=== PATIENT | male | born 1970 ===

== ENCOUNTER 2024-09-04 16:04 | Inpatient (IN) | payer OTHER, SELFPAY ==
--- OUTSIDE RECORDS SUMMARY | 2024-09-04 16:16 | XMS_ITS | Encounter Summary ---
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 Buprenorphine screen, urine (09/03/2024 4:32 PM EDT) Buprenorphine Screen Urine Negative Negative LAB CHEMISTRY METHOD 09/03/2024 5:[address] [facility] Urine Urine specimen obtained by clean catch procedure / Unknown Non-blood Collection / Unknown 09/03/2024 4:32 PM EDT 09/03/2024 4:[address] [facility] - 09/03/2024 5:32 PM EDT Assay cutoff 5 ng/mL Semi-quantitative assay for screening purposes only. Unconfirmed screening result should not be used for non-medical purposes. *ALTERNATE METHOD CONFIRMATION DONE UPON REQUEST ONLY* [facility]LES Fin al Result Performing Organization Address [facility]/ZIP Co de Phone Number [facility] [address] [place] [address], [place] [phone] * (ABNORMAL) Drug abuse screen 8a panel, urine (09/03/2024 4:32 PM EDT) Amphetamine Screen, Ur Negative Negative LAB CHEMISTRY METHOD 6:[address] [facility] Comment:Certain OTC medicati ons containing ephedrine, phenylephrine, pseudoephedrine and phenylpropanolamine can cause false positive results. Barbiturate Screen, Ur Negative Negative LAB [facility] Benzodiazepine Screen, Ur Negative Negative LAB CHEMISTRY METHOD 5 6:09 PM [facility] Cocaine Screen, Ur Positive(A ) Negative LAB CHEMISTRY METHOD 5 6:09 PM [facility] Opiate Screen, Ur Negative Negative LAB CHEMISTRY METHOD 5 6:09 PM [facility] Cannabinoid (THC) Screen, Ur Negative Negative LAB CHEMISTRY METHOD 5 6:09 PM [facility] Comment:Specimens from patie nts taking pantoprazole sodium (Protonix) have been shown to produce false positive results. Oxycodone Screen, Ur Negative Negative LAB CHEMISTRY METHOD 5 6:09 PM [facility] Fentanyl, Ur Positive(A ) Negative LAB CHEMISTRY METHOD 5 6:09 PM [facility] Urine Urine specimen obtained by clean catch procedure / Unknown Non-blood Collection / Unknown 09/03/2024 4:32 PM EDT 09/03/2024 4:59 PM EDT [facility] - 09/03/2024 6:09 PM EDT Assay cutoffs: Amphetamines ? 1000 ng/mL Barbiturates ?200 ng/mL Benzodiazepines ?? 200 ng/mL Cocaine ? 300 ng/mL Fentanyl ?1 ng/mL Opiates ? 300 ng/mL Oxycodone ? 100 ng/mL THC ?50 ng/mL Semi-quantitative assay for screening purposes only. Unconfirmed screening result should not be used for non-medical purposes. *ALTERNATE METHOD CONFIRMATION DONE UPON REQUEST ONLY* Ana LAZO LAB URINE ORDERABLES [facility] al Result EMELI [place] ([facility]) [facility] [address] [place] [address], documented in this encounter Visit Diagnoses Diagnosis Suicidal ideation- Primary documented in this encounter Administered Medications Active Administered Medications - up to 3 most recent administrations Medication Order MAR Action Action Date Dose Rate Site methadone (DOLOPHINE) tablet 10 mg 10 mg, oral, Daily, First dose on Sun09/04/24 at 1145, TOTAL DOSE = 95 MG Given 09/04/2024 11:38 AM EDT 10 mg methadone (DOLOPHINE) tablet 5 mg 5 mg, oral, Daily, First dose on Sun09/04/24 at 1145, TOTAL DOSE = 95 MG Given 09/04/2024 11:39 AM EDT 5 mg methadone (METHADOSE) dispersible tablet 80 mg 80 mg, oral, Daily, First dose on Sun09/04/24 at 1145, TOTAL DOSE = 95 MG Disperse total dose in ~120 mL of water, orange juice, or other acidic fruit beverage prior to administration; if insoluble excipients remain and do not entirely dissolve, add a small amount of liquid to cup and administer remaining mixture. Do not chew or swallow tablet before dispersing in liquid. Given 09/04/2024 11:38 AM EDT 80 mg Inactive Administered Medications - up to 3 most recent administrations Medication Order MAR Action Action Date Dose Rate Site LORazepam (ATIVAN) tablet 1 mg 1 mg, oral, Once, On Sun09/03/24 at 1924, For 1 dose Given 09/03/2024 8:23 PM EDT 1 mg potassium chloride (KLOR-CON M20) CR tablet 20 mEq 20 mEq, oral, Once, On Sun09/04/24 at 1323, For 1 dose, Tablet may be swallowed whole (do not crush/chew/suck on) OR broken in half and each half swallowed separately OR dissolved (whole tablet) in ~4 ounces of water (allow ~2 minutes to dissolve, stir well and administer immediately). Given 09/04/2024 2:36 PM EDT 20 mEq potassium chloride (KLOR-CON M20) CR tablet 40 mEq 40 mEq, oral, Once, On Sun09/04/24 at 1123, For 1 dose, Tablet may be swallowed whole (do not crush/chew/suck on) OR broken in half and each half swallowed separately OR dissolved (whole tablet) in ~4 ounces of water (allow ~2 minutes to dissolve, stir well and administer immediately). Given 09/04/2024 11:39 AM EDT 40 mEq documented in this encounter Active and Recently Administered Medications Times are shown in EDT. Scheduled Medication Order 09/02/2024 09/03/2024 09/04/2024 LORazepam (ATIVAN) tablet 1 mg (COMPLETED) 1 mg, oral, Once, On Sun09/03/24 at 1924, For 1 dose 2022 (Given - Provider: Pilar Alvarez RN) methadone (DOLOPHINE) tablet 10 mg(Linked Group 1) 10 mg, oral, Daily, First dose on Sun09/04/24 at 1145, TOTAL DOSE = 95 MG 1138 (Given - Provid er: Brinda Painting RN) methadone (DOLOPHINE) tablet 5 mg(Linked Group 1) 5 mg, oral, Daily, First dose on Sun09/04/24 at 1145, TOTAL DOSE = 95 MG 1139 (Given - Provid er: Brinda Painting RN) methadone (METHADOSE) dispersible tablet 80 mg(Linked Group 1) 80 mg, oral, Daily, First dose on Sun09/04/24 at 1145, TOTAL DOSE = 95 MG Disperse total dose in ~120 mL of water, orange juice, or other acidic fruit beverage prior to administration; if insoluble excipients remain and do not entirely dissolve, add a small amount of liquid to cup and administer remaining mixture. Do not chew or swallow tablet before dispersing in liquid. 1138 (Given - Provid er: Brinda Painting RN) potassium chloride (KLOR-CON M20) CR tablet 20 mEq (COMPLETED)(Linked Group 2) 20 mEq, oral, Once, On Sun09/04/24 at 1323, For 1 dose, Tablet may be swallowed whole (do not crush/chew/suck on) OR broken in half and each half swallowed separately OR dissolved (whole tablet) in ~4 ounces of water (allow ~2 minutes to dissolve, stir well and administer immediately). 1436 (Given - Provid er: Brinda Painting RN) potassium chloride (KLOR-CON M20) CR tablet 40 mEq (COMPLETED)(Linked Group 2) 40 mEq, oral, Once, On Angeline 09/04/24 at 1123, For 1 dose, Tablet may be swallowed whole (do not crush/chew/suck on) OR broken in half and each half swallowed separately OR dissolved (whole tablet) in ~4 ounces of water (allow ~2 minutes to dissolve, stir well and administer immediately). 1139 (Given - Provid er: Brinda Painting RN) Linked Groups Order Group 1: methadone (METHADOSE) dispersible tablet 80 mgJump to med 80 mg, oral, Daily, First dose on Angeline 09/04/24 at 1145, TOTAL DOSE = 95 MG Disperse total dose in ~120 mL of water, orange juice, or other acidic fruit beverage prior to administration; if insoluble excipients remain and do not entirely dissolve, add a small amount of liquid to cup and administer remaining mixture. Do not chew or swallow tablet before dispersing in liquid. And methadone (DOLOPHINE) tablet 10 mgJump to med 10 mg, oral, Daily, First dose on Angeline 09/04/24 at 1145, TOTAL DOSE = 95 MG And methadone (DOLOPHINE) tablet 5 mgJump to med 5 mg, oral, Daily, First dose on Angeline 09/04/24 at 1145, TOTAL DOSE = 95 MG Group 2: potassium chloride (KLOR-CON M20) CR tablet 40 mEq (COMPLETED)Jump to med 40 mEq, oral, Once, On Angeline 09/04/24 at 1123, For 1 dose, Tablet may be swallowed whole (do not crush/chew/suck on) OR broken in half and each half swallowed separately OR dissolved (whole tablet) in ~4 ounces of water (allow ~2 minutes to dissolve, stir well and administer immediately). Followed by potassium chloride (KLOR-CON M20) CR tablet 20 mEq (COMPLETED)Jump to med 20 mEq, oral, Once, On Angeline 09/04/24 at 1323, For 1 dose, Tablet may be swallowed whole (do not crush/chew/suck on) OR broken in half and each half swallowed separately OR dissolved (whole tablet) in ~4 ounces of water (allow ~2 minutes to dissolve, stir well and administer immediately). documented in this encounter Orders Medications Ordered That Mason ht Not Have Been Administered Count Last Ordered Date First Ordered Date methadone (DOLOPHINE) tablet 95 mg 1 2024 Diet Count Last Ordered Date First Orde red Date ADULT DIET 1 09/03/2024 Consult Count Last Ordered Date First Orde red Date IP CONSULT TO ELL TEACHER 2 09/03/2024 Precaution Count Last Ordered Date First Orde red Date SUICIDE PRECAUTIONS 1 09/03/2024 Privilege Level Count Last Ordered Date First O rdered Date PATIENT MANAGER MEDICARE MARKETING 1 09/03/2024 documented in this encounter Care Teams Information Technology Instructor Relationship Specialty Start Date End Date Physician, No Pcp PCP - General 09/03/24 documented as of this encounter
--- OUTSIDE RECORDS SUMMARY | 2024-09-04 16:16 | XMS_ITS | Patient Health Record ---
Author Organization [facility] Address [address], [place] [id number] Care Team Providers Care Loom Cleaner Name Role Phone [facility] (? provider), [facility] Primary Care Provid er Unavailable Rosales Irvin Unavailable [phone] [facility], update Unavailable Unavailable Jia Alvares Unavailable Reason For Referral No Information Encounters Encounter Location Date Provider Diagnosis [facility] [address], [place] [phone] 10/10/2023 Rosales Irvin [facility] [address], [place] [phone] 10/24/2023 Jia Alvares Plan Of Treatment No Information Insurance Providers Payer Name Payer Address Payer Phone Subscriber Number Group Number Insured Name Patient Relationship to Insured Coverage Start Date Coverage End Date Insurance - None Need to apply for insurance [id number] [place] [id number] Janes Jorgensen Self - patient is the insured 4
--- OUTSIDE RECORDS SUMMARY | 2024-09-04 16:16 | XMS_ITS | Clinical Summary ---
Author Organization [facility] Address [address] [place] [address] Phone Care Team Providers Care Premix Concrete Batcher Name Role Phone Physician, No Pcp Primary Care Provider Unavaila ble Allergies No known active allergies Medications No known medications Encounters Date Type Department Care Team Description 09/03/2024 4:17 PM EDT - 09/04/2024 3:56 PM EDT Emergency [facility] Emergency [address] [place] [address] Suicidal ideation (Primary Dx) Discharge Disposition: Psychiatric Hospital from Last 3 Months Social History Tobacco Use Types Packs/Day Years Used Date Smoking Tobacco: Never Assessed Sex and Gender Information Value Date Recorded Sex Assigned at Not on file Legal Sex Male 10:08 PM EST Gender Identity Not on file Sexual Orientation Not on file Last Filed Vital Signs Vital Sign Reading [...] Mass Index 20.67 09/03/2024 8:58 PM EDT Plan of Treatment Health Maintenance Due Date Last Done Comments DTaP,Tdap,and Td Vaccines (1 - Tdap) 1988 Hepatitis B Vaccines (1 of 3 - 19+ 3-dose series) 1988 Pneumococcal Vaccine: 50+ Ye ars (1 of 1 - PCV) 12/18/2019 Zoster Vaccines (1 of 2) 12/18/2019 COVID-19 Vaccine ( - 2023-2 5 season) 2023 Cholesterol Screening (Lipid Panel) 09/04/2024 Colorectal Cancer Screening: Colonoscopy 09/04/2024 Depression Screening 09/04/2024 HIV Screening 09/04/2024 Hepatitis C Screening 09/04/2024 Social Influencers of Health Screening 09/04/2024 Influenza Vaccine (Season Ended) 2024 HIB Vaccines Aged Out No longer eligi ble based on patient's age to complete this topic HPV Vaccines Aged Out No longer eligi ble based on patient's age to complete this topic Hepatitis A Vaccines Aged Out No long er eligible based on patient's age to complete this topic IPV Vaccines Aged Out No longer eligi ble based on patient's age to complete this topic MMR Vaccines Aged Out No longer eligi ble based on patient's age to complete this topic Meningococcal ACWY Vaccine Aged Out N o longer eligible based on patient's age to complete this topic Meningococcal B Vaccine Aged Out No l onger eligible based on patient's age to complete this topic Pneumococcal Vaccine: Pediat rics (0 to 5 Years) and At-Risk Patients (6 to 64 Years) Aged Out No longer eligible b ased on patient's age to complete this topic RSV Immunization Patients Un cornelia 20 months Aged Out No longer eligible b ased on patient's age to complete this topic Varicella Vaccines Aged Out No longer eligible based on patient's age to complete this topic Procedures Procedure Name Priority Date/Time Associated Diagnosis Comments ECG 12-LEAD STAT 09/04/2024 11:28 AM EDT CBC WITH AUTO DIFFERENTIAL STAT 09/03/2024 4:51 PM EDT SALICYLATE LEVEL STAT 09/03/2024 4:51 PM EDT ACETAMINOPHEN LEVEL STAT 09/03/2024 4 :51 PM EDT ETHANOL STAT 09/03/2024 4:51 PM EDT COMPREHENSIVE METABOLIC PANEL STAT 09/03/2024 4:51 PM EDT CBC AND DIFFERENTIAL STAT 09/03/2024 4:51 PM EDT METHADONE SCREEN, URINE STAT 09/03/2024 4:32 PM EDT PHENCYCLIDINE, URINE STAT 09/03/2024 4:32 PM EDT BUPRENORPHINE SCREEN, URINE STAT 09/03/2024 4:32 PM EDT DRUG ABUSE SCREEN 8A PANEL, URINE STAT 09/03/2024 4:32 PM EDT from Last 3 Months Results * (ABNORMAL) CBC auto differential (09/03/2024 4:51 PM EDT) [facility] Signature WBC 7.5 4.8 - 10.8 K/mcL LAB HEMETOLOGY METHOD 09/03/2024 5:08 PM EDT [facility] RBC 4.90 4.50 - 5.50 M/mcL LAB HEMETOLOGY METHOD 09/03/2024 5:08 PM EDT [facility] Hemoglobin 14.0 13.5 - 17.5 g/dL LAB HEMETOLOGY METHOD 09/03/2024 5:08 PM EDT [facility] Hematocrit 40.9(L) 42.0 - 54.0 % LAB [facility] MCV 83.6 79.0 - 98.0 FL LAB HEMETOLOGY METHOD 09/03/2024 5:08 PM EDT [facility] MCH 28.6 27.0 - 32.0 pcg LAB HEMETOLOGY METHOD 09/03/2024 5:08 PM EDT [facility] MCHC 34.2 32.0 - 37.0 g/dL LAB HEMETOLOGY METHOD [facility]03[facility] RDW 12.4 11.0 - 15.0 % LAB HEMETOLOGY METHOD 09/03/2024 5:08 PM [facility] Platelets 259 130 - 400 K/mcL LAB HEMETOLOGY METHOD 09/03/2024 5:08 PM [facility] MPV 10.6 7.0 - 11.0 FL LAB HEMETOLOGY METHOD 09/03/2024 5:08 PM [facility] NRBC 0.0 <1.0 % LAB HEMETOLOGY METHOD 09/03/2024 5:08 PM [facility] NRBC Absolute 0.00 <0.10 K/mcL LAB HEMETOLOGY METHOD 09/03/2024 5:08 PM [facility] Neutrophils Relative 63.4 % LAB HEMETOLOGY METHOD 09/03/2024 5:08 PM [facility] Lymphocytes Relative 25.0 % LAB HEMETOLOGY METHOD 09/03/2024 5:08 PM [facility] Monocytes Relative 10.1 % LAB HEMETOLOGY METHOD 09/03/2024 5:08 PM [facility] Eosinophils Relative 0.4 % LAB HEMETOLOGY METHOD 09/03/2024 5:08 PM [facility] Basophils Relative 0.7 % LAB HEMETOLOGY METHOD 09/03/2024 5:08 PM [facility] Immature Granulocytes Relative 0.4 % LAB HEMETOLOGY METHOD 09/03/2024 5:08 PM [facility] Neutrophils Absolute 4.73 1.50 - 7.00 K/mcL LAB HEMETOLOGY METHOD 09/03/2024 5:08 PM [facility] Lymphocytes Absolute 1.86 1.00 - 5.00 K/mcL LAB HEMETOLOGY METHOD 09/03/2024 5:08 PM [facility] Monocytes Absolute 0.75 0.20 - 1.00 K/mcL LAB HEMETOLOGY METHOD 09/03/2024 5:08 PM EDT [facility] Eosinophils Absolute 0.03 0.00 - 0.50 K/[facility] LAB HEMETOLOGY METHOD 09/03/2024 5:08 PM EDT [facility] Basophils Absolute 0.05 0.00 - 0.20 K/[facility] LAB HEMETOLOGY METHOD 09/03/2024 5:08 PM EDT [facility] Immature Granulocytes Absolute 0.03 0.00 - 0.03 K/[facility] LAB HEMETOLOGY METHOD 09/03/2024 5:08 PM EDT [facility] Blood Venous blood specimen / Unknown Venipuncture / Unknown 09/03/2024 4:51 PM EDT 09/03/2024 4:59 PM EDT Ana Nick LAZO LAB BLOOD ORDERABLES Fin al Result Performing Organization Address City/[facility]/ZIP Co de Phone Number [facility] [address] [place] [address], [place] [phone] * Ethanol (09/03/2024 4:51 PM EDT) Ethanol Level <3 0 - 10 mg/dL LAB CHEMISTRY METHOD 09/03/2024 5:29 PM EDT [facility] Blood Venous blood specimen / Unknown Venipuncture / Unknown 09/03/2024 4:51 PM EDT 09/03/2024 4:59 PM EDT [facility] [place] LAB BLOOD ORDERABLES Fin al Result Performing Organization Address City/[facility]/ZIP Co de Phone Number [facility] [address] [place] [address], [place] [phone] * (ABNORMAL) Acetaminophen level (09/03/2024 4:51 PM EDT) Acetaminophen Level <2.0(L) 10.0 - 30.0 mcg/mL LAB CHEMISTRY METHOD 09/03/2024 5:29 PM EDT [facility] Blood Venous blood specimen / Unknown Venipuncture / Unknown 09/03/2024 4:51 PM EDT 09/03/2024 4:59 PM EDT [facility] [place] LAB BLOOD ORDERABLES Fin al Result Performing Organization Address [facility]/ZIP Co de Phone Number [facility] [address] [place] [address], [place] [phone] * (ABNORMAL) Salicylate level (09/03/2024 4:51 PM EDT) Salicylate Level <1.7(L) 2.0 - 29.0 mg/dL LAB CHEMISTRY METHOD 09/03/2024 5:29 PM EDT [facility] Blood Venous blood specimen / Unknown Venipuncture / Unknown 09/03/2024 4:51 PM EDT 09/03/2024 4:59 PM EDT Ana Nick LAZO LAB BLOOD ORDERABLES Fin al Result Performing Organization Address [facility] de Phone Number [facility] [address] [place] [address], [place] [phone] * (ABNORMAL) Comprehensive metabolic panel (09/03/2024 4:51 PM EDT) Sodium 136 133 - 145 mmol/L LAB CHEMISTRY METHOD 09/03/2024 5:29 PM EDT [facility] Potassium 3.3(L) 3.5 - 5.5 mmol/L LAB CHEMISTRY METHOD 09/03/2024 5:29 PM EDT [facility] Chloride 100 96 - 110 mmol/L LAB CHEMISTRY METHOD 09/03/2024 5:29 PM EDT [facility] CO2 29 21 - 32 mmol/L LAB CHEMISTRY METHOD 09/03/2024 5:29 PM [facility] Anion Gap 7 3 - 11 LAB CHEMISTRY METHOD 09/03/2024 5:29 PM [facility] Glucose 107(H) 70 - 100 mg/dL LAB CHEMISTRY METHOD 09/03/2024 5:29 PM [facility] BUN 19 5 - 25 mg/dL LAB CHEMISTRY METHOD 09/03/2024 5:29 PM [facility] Creatinine 0.92 0.70 - 1.30 mg/dL LAB CHEMISTRY METHOD 09/03/2024 5:29 PM [facility] eGFR 99 >=60 mL/min/1. 73m2 LAB CHEMISTRY METHOD 09/03/2024 5:29 PM [facility] Comment:Calculation based on the Chronic Kidney Disease Epidemiology Collaboration (CKD-EPI) equation refit without adjustment for race. BUN/Creatinine Ratio 20.7 LAB CHEMISTRY METHOD 09/03/2024 5:29 PM [facility] Calcium 9.4 8.5 - 10.5 mg/dL LAB CHEMISTRY METHOD 09/03/2024 5:29 PM [facility] AST (SGOT) 28 10 - 42 unit/L LAB CHEMISTRY METHOD 09/03/2024 5:29 PM [facility] ALT (SGPT) 34 10 - 60 unit/L LAB CHEMISTRY METHOD 09/03/2024 5:29 PM [facility] Alkaline Phosphatase 37(L) 42 - 121 unit/L LAB CHEMISTRY METHOD 09/03/2024 5:29 PM [facility] Total Protein 7.4 6.0 - 8.0 g/dL LAB CHEMISTRY METHOD 09/03/2024 5:29 PM [facility] Albumin 3.9 3.2 - 5.0 g/dL LAB CHEMISTRY METHOD 09/03/2024 5:29 PM [facility] Total Bilirubin 0.7 0.0 - 1.4 mg/dL LAB CHEMISTRY METHOD 09/03/2024 5:29 PM EDT [facility] Blood Venous blood specimen / Unknown Venipuncture / Unknown 09/03/2024 4:51 PM EDT 09/03/2024 4:59 PM EDT Ana LAZO LAB BLOOD ORDERABLES Gabe al Result [facility] [address] [place] [address], [place] [phone] * (ABNORMAL) Drug abuse screen 8a panel, urine (09/03/2024 4:32 PM EDT) Amphetamine Screen, Ur Negative Negative LAB CHEMISTRY METHOD 5 6:09 PM EDT [facility] Comment:Certain OTC medicati ons containing ephedrine, phenylephrine, pseudoephedrine and phenylpropanolamine can cause false positive results. Barbiturate Screen, Ur Negative Negative LAB CHEMISTRY METHOD 5 6:09 PM EDT [facility] Benzodiazepine Screen, Ur Negative Negative LAB CHEMISTRY METHOD 5 6:09 PM [facility] Cocaine Screen, Ur Positive(A ) Negative LAB CHEMISTRY METHOD 5 6:09 PM T [facility] Opiate Screen, Ur Negative Negative LAB CHEMISTRY METHOD 5 6:09 PM T [facility] Cannabinoid (THC) Screen, Ur Negative Negative LAB CHEMISTRY METHOD 5 6:09 PM T [facility] Comment:Specimens from patie nts taking pantoprazole sodium (Protonix) have been shown to produce false positive results. Oxycodone Screen, Ur Negative Negative LAB CHEMISTRY METHOD 5 6:09 PM T [facility] Fentanyl, Ur Positive(A ) Negative LAB CHEMISTRY METHOD 5 6:09 PM EDT [facility] Urine Urine specimen obtained by clean catch procedure / Unknown Non-blood Collection / Unknown 09/03/2024 4:32 PM EDT 09/03/2024 4:59 PM EDT [facility] - 09/03/2024 6:09 PM EDT Assay cutoffs: Amphetamines ? 1000 ng/mL Barbiturates ?200 ng/mL Benzodiazepines ?? 200 ng/mL Cocaine ? 300 ng/mL Fentanyl ?1 ng/mL Opiates ? 300 ng/mL Oxycodone ? 100 ng/mL THC ?50 ng/mL Semi-quantitative assay for screening purposes only. Unconfirmed screening result should not be used for non-medical purposes. *ALTERNATE METHOD CONFIRMATION DONE UPON REQUEST ONLY* [place] LAB URINE ORDERABLES Fin al Result [facility] [address] [place] [address], * Buprenorphine screen, urine (09/03/2024 4:32 PM EDT) [facility] Buprenorphine Screen Urine Negative Negative LAB CHEMISTRY METHOD 09/03/2024 5:32 PM EDT [facility] Urine Urine specimen obtained by clean catch procedure / Unknown Non-blood Collection / Unknown 09/03/2024 4:32 PM EDT 09/03/2024 4:59 PM EDT [facility] - 09/03/2024 5:32 PM EDT Assay cutoff 5 ng/mL Semi-quantitative assay for screening purposes only. Unconfirmed screening result should not be used for non-medical purposes. *ALTERNATE METHOD CONFIRMATION DONE UPON REQUEST ONLY* [facility] LAB URINE ORDERABLES Fin al Result Performing Organization Address [facility] Co de Phone Number [facility] [address] [place] [address], [place] [phone] * (ABNORMAL) Methadone, urine (09/03/2024 4:32 PM EDT) Methadone Screen, Urine Positive (A) Negative LAB CHEMISTRY METHOD 09/03/2024 5:32 PM EDT [facility] Comment: Assay cutoff 300 ng/mL Semi-quantitative assay for screening purposes only. Unconfirmed screening result should not be used for non-medical purposes. *ALTERNATE METHOD CONFIRMATION DONE UPON REQUEST ONLY* Urine Urine specimen obtained by clean catch procedure / Unknown Non-blood Collection / Unknown 09/03/2024 4:32 PM EDT 09/03/2024 4:59 PM EDT [facility] URINE ORDERABLES Fin al Result Performing Organization Address [facility] de Phone Number [facility] [address] [place] [address], [place] [phone] * Phencyclidine, urine (09/03/2024 4:32 PM EDT) Pathologist [facility] PCP Scrn, Ur Negative Negative LAB CHEMISTRY METHOD 09/03/2024 5:32 PM EDT [facility] Comment: Assay cutoff 25 ng/mL Semi-quantitative assay for screening purposes only. Unconfirmed screening result should not be used for non-medical purposes. *ALTERNATE METHOD CONFIRMATION DONE UPON REQUEST ONLY* Urine Urine specimen obtained by clean catch procedure / Unknown Non-blood Collection / Unknown 09/03/2024 4:32 PM EDT 09/03/2024 4:59 PM EDT [facility] URINE ORDERABLES Fin al Result Performing Organization Address [facility]/ZIP Co de Phone Number [facility] [address] [place] [address], [place] [phone] from Last 3 Months Insurance [place] Care Teams Premix Concrete Batcher Relationship Specialty Start Date End Date Physician, No Pcp PCP - General 09/03/24
[2024-09-04 16:39] VITALS: BP 141/77; PULSE 77; RESP 16; TEMP 36.7; O2SAT 97
[2024-09-04 16:44] VITALS: BMI 26.0
[2024-09-04 20:00] VITALS: BP 124/80; PULSE 78; RESP 16; TEMP 36.4; O2SAT 98
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
[2024-09-04] MEDS: traZODone HCL 50 MG TABLET PO (21:57)
[2024-09-04] MEDS: hydrOXYzine HCL 25 MG TABLET PO (21:57)
--- NOTE | 2024-09-05 06:30 | HE.PHANOTE ---
Addendum entered by Dawn Fink shamar 09/05/24 10:28: received new form, [facility] [phone] confirmed to have administered 95 mg to this patient on 09/04/2024 Original Note: METHADONE Pt last received 95mg on 08/26/24 with 5 take home bottles from [facility] ([phone], ex [phone]). Pt did not consume the 5 bottles, and are being stored here, per RN.
[2024-09-05 07:54] VITALS: BP 106/64; PULSE 71; RESP 14; TEMP 36.6; O2SAT 97
[2024-09-05 08:21] LABS: Estimated Average Glucose 105 mg/dL; Hemoglobin A1C 127.9219 umol/L; Hemoglobin A1c % 5.3 % (<6.0); Total Hemoglobin (HGBA1C) 3751.1978 umol/L
[2024-09-05 08:32] LABS: Alanine Aminotransferase 28 U/L (0-40); Albumin Level 3.9 g/dL (3.5-5.0); Alkaline Phosphatase 36 U/L (39-117); Anion Gap 11 (12-20); Aspartate Amino Transferase 31 U/L (5-37); Bilirubin Total 0.7 mg/dL (0.0-1.0); Blood Urea Nitrogen 17 mg/dL (9-16); Calcium 9.7 mg/dL (8.4-10.2); Carbon Dioxide 29 mmol/L (22-29); Chloride 103 mmol/L (96-108); Cholesterol 120 mg/dL (<200); Creatinine Clr Calc Pharmacy 104.2; Estimated Glomerular Filt Rate > 60; Glucose Random 88 mg/dL (60-115); HDL Cholesterol 29 mg/dL (>40); LDL Cholesterol Calculated 77 mg/dL (<100); Potassium 4.2 mmol/L (3.3-5.1); Sodium 139 mmol/L (135-145); Triglycerides 74 mg/dL (<150)
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
[2024-09-05] MEDS: Nicotine 21 MG PATCH.TD24 TRANSDERMA (09:55)
--- NOTE | 2024-09-05 10:04 | PC.NURSE ---
Spoke with Devin Khanna RN at [facility], pt last received 95mg Methadone 09/04/24 at 1130am
[2024-09-05] MEDS: Acetaminophen 325 MG TABLET 650 MG PO (10:08)
[2024-09-05] MEDS: Milk of Magnesia 30 ML ORAL.SUSP PO (10:09)
[2024-09-05] MEDS: methADONE HCl 20 MG/2 ML ORAL.CONC 95 MG PO (10:35)
[2024-09-05] MEDS: DULoxetine HCl 30 MG CAPSULE.DR PO (10:38)
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
--- NOTE | 2024-09-05 13:17 | MHC.CLN ---
CONSULT ROUTINE NUTRITION CONSULT. PATIENT REPORTED UPON ADM POOR APPETITE AND RECENT WEIGHT LOSS OF UNKNOWN AMOUNT. NO WEIGHT HX VIEWED. BMI WITHIN NORMAL LIMITS. PLEASE CONSULT RD IF PATIENT WITH POOR PO DURING ADM.
[2024-09-05 16:51] VITALS: BP 114/73; PULSE 71; RESP 16; TEMP 36.5; O2SAT 98
[2024-09-05] MEDS: hydrOXYzine HCL 25 MG TABLET PO (16:57)
[2024-09-05 19:18] VITALS: BP 107/72; PULSE 66; RESP 16; TEMP 36.3; O2SAT 98
[2024-09-06 07:43] VITALS: BP 109/74; PULSE 69; RESP 14; TEMP 36.7; O2SAT 99
[2024-09-06] MEDS: methADONE HCl 20 MG/2 ML ORAL.CONC 95 MG PO (08:06)
[2024-09-06] MEDS: DULoxetine HCl 30 MG CAPSULE.DR PO (08:37)
[2024-09-06] MEDS: Thiamine HCL 100 MG TABLET PO (08:37)
[2024-09-06] MEDS: Nicotine 21 MG PATCH.TD24 TRANSDERMA (08:40)
[2024-09-06] MEDS: Acetaminophen 325 MG TABLET 650 MG PO (08:47)
--- NOTE | 2024-09-06 09:45 | HO.PSYCHPN ---
Subjective Subjective Date of Service: 09/06/24 Reason For Visit: opioid use d/o, MDD, unspecified anxiety d/o Subjective Notes: Section 12B Interim History: Patient was seen and discussed in rounds today. Records and plans were reviewed. She refused to talk to me and pull the covers over her head. She had expressed to the nurse that she had been on Adderall which was last filled in April and . I did not discuss either of these with her today given her unwillingness to talk. She continues to be reported to be delusional, accusatory and responding to internal stimuli. No dangerous behaviors. Review of Systems Review of Systems Yes Unobtainable due to mental status Mental Status Exam Mental Status Exam Narrative: Refused to be assessed Diagnostics Vital Signs (24Hr): Vital Signs - 24 hr 09/05/24 16:51 09/05/24 19:18 09/06/24 07:43 Temperature 97.7 F 97.3 F 98.0 F Pulse Rate 71 66 69 Respiratory Rate 16 16 14 Blood Pressure 114/73 107/72 109/74 Pulse Oximetry 98 98 99 Oxygen Delivery Method Room Air Room Air Room Air BMI result Body Mass Index 26.0 Labs 09/05/24 07:57 Labs: Laboratory Results - last 48 hr 09/05/24 07:57 Sodium 139 Potassium 4.2 Chloride 103 Carbon Dioxide 29 Anion Gap 11 L BUN 17 H Creatinine 0.81 Estim Creat Clear Calc 104.2 Estimated GFR > 60 Random Glucose 88 Estimat Average Glucose 105 Hemoglobin A1c % 5.3 Calcium 9.7 Total Bilirubin 0.7 AST 31 ALT 28 Alkaline Phosphatase 36 L Total Protein 7.0 Albumin 3.9 Triglycerides 74 Cholesterol 120 LDL Cholesterol, Calc 77 HDL Cholesterol 29 L Medications Medications Current Medications Acetaminophen (Acetaminophen 325 Mg Tablet) 650 mg PO Q6H PRN PRN Reason: Headache/Pain, Scale 1-10 Last Admin: 09/06/24 08:47 Dose: 650 mg Al Hydroxide/Mg Hydroxide (Magnesium Hydrox/Alum Hydrox 30 Ml Oral.Susp) 30 ml PO Q6H PRN PRN Reason: Heartburn/Nausea Duloxetine HCl (Duloxetine Hcl 30 Mg Capsule.Dr) 30 mg PO DAILY [facility] Last Admin: 09/06/24 08:37 Dose: 30 mg Hydroxyzine HCl (Hydroxyzine Hcl 25 Mg Tablet) 25 mg PO Q6H PRN PRN Reason: mild anxiety Last Admin: 09/05/24 16:57 Dose: 25 mg Lidocaine (Lidocaine 4 % Patch Adh..Patch) 1 patch TRANSDERMA DAILY PRN; Protocol PRN Reason: Pain, Moderate(Pain Scale 4-6) Lorazepam (Lorazepam 1 Mg Tablet) 1 mg PO Q2H PRN PRN Reason: CIWA 8-11 Lorazepam (Lorazepam 1 Mg Tablet) 2 mg PO Q2H PRN PRN Reason: CIWA 12-15 Lorazepam (Lorazepam 1 Mg Tablet) 3 mg PO Q2H PRN PRN Reason: CIWA > 15, and call Magnesium Hydroxide (Milk Of Magnesia 30 Ml Oral.Susp) 30 ml PO DAILY PRN PRN Reason: Constipation Last Admin: 09/05/24 10:09 Dose: 30 ml Methadone HCl (Methadone Hcl 20 Mg/2 Ml Oral.Conc) 95 mg PO DAILY [facility] Last Admin: 09/06/24 08:06 Dose: 95 mg Nicotine (Nicotine 21 Mg Patch.Td24) 21 mg TRANSDERMA DAILY [facility] Last Admin: 09/06/24 08:40 Dose: 21 mg Nicotine Polacrilex (Nicotine Polacrilex 2 Mg Gum) 4 mg BUCCAL Q2H PRN PRN Reason: Nicotine Cravings Olanzapine (Olanzapine 5 Mg Tablet) 5 mg PO Q4H PRN PRN Reason: Hallucinations Prazosin HCl (Prazosin Hcl 1 Mg Capsule) 1 mg PO BEDTIME [facility]; Protocol Last Admin: 09/05/24 23:20 Dose: Not Given Thiamine HCl (Thiamine Hcl 100 Mg Tablet) 100 mg PO DAILY [facility] Last Admin: 09/06/24 08:37 Dose: 100 mg Trazodone HCl (Trazodone Hcl 50 Mg Tablet) 50 mg PO BEDTIME MRX1 PRN PRN Reason: Insomnia Last Admin: 09/04/24 21:57 Dose: 50 mg Allergies Allergies Allergy/AdvReac Type Severity Reaction Status Date / Time No Known Allergies Allergy Verified 09/04/24 16:39 Assessment & Plan Assessment & Plan (1) MDD (major depressive disorder): Status: Acute Code(s): F32.9 - Major depressive disorder, single episode, unspecified (2) PTSD (post-traumatic stress disorder): Status: Acute Code(s): F43.10 - Post-traumatic stress disorder, unspecified (3) Opioid use disorder: Status: Acute Code(s): F11.90 - Opioid use, unspecified, uncomplicated (4) Cocaine use disorder: Status: Acute Code(s): F14.10 - Cocaine abuse, uncomplicated (5) Homelessness: Status: Acute Code(s): Z59.00 - Homelessness unspecified Plan Patient is a 53-year-old male with history of MDD, PTSD, opiate use disorder and cocaine use disorder who self presented to crisis due to suicidal ideation secondary to increased depression and life stressors. Plan: CV 5 minute safety checks Continue home medications [place] protocol Encourage groups Obtain collateral Referral to outpatient psychiatric providers Discharge planning 09/06: Continue current regimen and plans Reason for continued inpatient stay Substantial Risk for: med/psych decompensation Time Spent With Patient Time: Total time managing care of this patient today ____ minutes.
[2024-09-06] MEDS: OLANZapine 5 MG TABLET PO (10:07)
[2024-09-06] MEDS: Lidocaine 4 % Patch ADH..PATCH 1 PATCH TRANSDERMA (10:08)
--- NOTE | 2024-09-06 11:03 | HO.PSYCHPN ---
Subjective Subjective Date of Service: 09/06/24 Reason For Visit: opioid use d/o, MDD, unspecified anxiety d/o Subjective Notes: Conditional Voluntary Interim History: Patient was seen and discussed in rounds today. Records and plans were reviewed. Jameel has been stable and continues on withdrawal protocol. Complains of left hip pain for which lidocaine patch was ordered. He is also having auditory hallucinations and Zyprexa 5 mg p.r.n. is ordered. Side effects reviewed. Eating and sleeping adequately. No other changes or additions were made Review of Systems Review of Systems Left hip pain Yes all other systems are reviewed and are negative Mental Status Exam Mental Status Exam Narrative: In today's visit he is alert, oriented and pleasant. Normal speech. Moderate eye contact. Affect is constricted. Admits to auditory hallucinations, not command in nature. No visual hallucinations. No overt delusions. Cognitively is grossly intact. No active SI. Moves all limbs. No gait abnormalities. Judgment is intact Diagnostics Vital Signs (24Hr): Vital Signs - 24 hr 09/05/24 16:51 09/05/24 19:18 09/06/24 07:43 Temperature 97.7 F 97.3 F 98.0 F Pulse Rate 71 66 69 Respiratory Rate 16 16 14 Blood Pressure 114/73 107/72 109/74 Pulse Oximetry 98 98 99 Oxygen Delivery Method Room Air Room Air Room Air BMI result Body Mass Index 26.0 Labs 09/05/24 07:57 Labs: Laboratory Results - last 48 hr 09/05/24 07:57 Sodium 139 Potassium 4.2 Chloride 103 Carbon Dioxide 29 Anion Gap 11 L BUN 17 H Creatinine 0.81 Estim Creat Clear Calc 104.2 Estimated GFR > 60 Random Glucose 88 Estimat Average Glucose 105 Hemoglobin A1c % 5.3 Calcium 9.7 Total Bilirubin 0.7 AST 31 ALT 28 Alkaline Phosphatase 36 L Total Protein 7.0 Albumin 3.9 Triglycerides 74 Cholesterol 120 LDL Cholesterol, Calc 77 HDL Cholesterol 29 L Medications Medications Current Medications Acetaminophen (Acetaminophen 325 Mg Tablet) 650 mg PO Q6H PRN PRN Reason: Headache/Pain, Scale 1-10 Last Admin: 09/06/24 08:47 Dose: 650 mg Al Hydroxide/Mg Hydroxide (Magnesium Hydrox/Alum Hydrox 30 Ml Oral.Susp) 30 ml PO Q6H PRN PRN Reason: Heartburn/Nausea Duloxetine HCl (Duloxetine Hcl 30 Mg Capsule.Dr) 30 mg PO DAILY [facility] Last Admin: 09/06/24 08:37 Dose: 30 mg Hydroxyzine HCl (Hydroxyzine Hcl 25 Mg Tablet) 25 mg PO Q6H PRN PRN Reason: mild anxiety Last Admin: 09/05/24 16:57 Dose: 25 mg Lidocaine (Lidocaine 4 % Patch Adh..Patch) 1 patch TRANSDERMA DAILY PRN; Protocol PRN Reason: Pain, Moderate(Pain Scale 4-6) Last Admin: 09/06/24 10:08 Dose: 1 patch Lorazepam (Lorazepam 1 Mg Tablet) 1 mg PO Q2H PRN PRN Reason: CIWA 8-11 Lorazepam (Lorazepam 1 Mg Tablet) 2 mg PO Q2H PRN PRN Reason: CIWA 12-15 Lorazepam (Lorazepam 1 Mg Tablet) 3 mg PO Q2H PRN PRN Reason: CIWA > 15, and call Magnesium Hydroxide (Milk Of Magnesia 30 Ml Oral.Susp) 30 ml PO DAILY PRN PRN Reason: Constipation Last Admin: 09/05/24 10:09 Dose: 30 ml Methadone HCl (Methadone Hcl 20 Mg/2 Ml Oral.Conc) 95 mg PO DAILY [facility] Last Admin: 09/06/24 08:06 Dose: 95 mg Nicotine (Nicotine 21 Mg Patch.Td24) 21 mg TRANSDERMA DAILY [facility] Last Admin: 09/06/24 08:40 Dose: 21 mg Nicotine Polacrilex (Nicotine Polacrilex 2 Mg Gum) 4 mg BUCCAL Q2H PRN PRN Reason: Nicotine Cravings Olanzapine (Olanzapine 5 Mg Tablet) 5 mg PO Q4H PRN PRN Reason: Hallucinations Last Admin: 09/06/24 10:07 Dose: 5 mg Prazosin HCl (Prazosin Hcl 1 Mg Capsule) 1 mg PO BEDTIME [facility]; Protocol Last Admin: 09/05/24 23:20 Dose: Not Given Thiamine HCl (Thiamine Hcl 100 Mg Tablet) 100 mg PO DAILY [facility] Last Admin: 09/06/24 08:37 Dose: 100 mg Trazodone HCl (Trazodone Hcl 50 Mg Tablet) 50 mg PO BEDTIME MRX1 PRN PRN Reason: Insomnia Last Admin: 09/04/24 21:57 Dose: 50 mg Allergies Allergies Allergy/AdvReac Type Severity Reaction Status Date / Time No Known Allergies Allergy Verified 09/04/24 16:39 Assessment & Plan Assessment & Plan (1) MDD (major depressive disorder): Status: Acute Code(s): F32.9 - Major depressive disorder, single episode, unspecified (2) PTSD (post-traumatic stress disorder): Status: Acute Code(s): F43.10 - Post-traumatic stress disorder, unspecified (3) Opioid use disorder: Status: Acute Code(s): F11.90 - Opioid use, unspecified, uncomplicated (4) Cocaine use disorder: Status: Acute Code(s): F14.10 - Cocaine abuse, uncomplicated (5) Homelessness: Status: Acute Code(s): Z59.00 - Homelessness unspecified Plan Patient is a 53-year-old male with history of MDD, PTSD, opiate use disorder and cocaine use disorder who self presented to crisis due to suicidal ideation secondary to increased depression and life stressors. Plan: CV 5 minute safety checks Continue home medications [place] protocol Encourage groups Obtain collateral Referral to outpatient psychiatric providers Discharge planning 09/06: Continue current regimen and plans. Added lidocaine patch and p.r.n. Zyprexa 5 mg Reason for continued inpatient stay Substantial Risk for: med/psych decompensation Time Spent With Patient Time: Total time managing care of this patient today ____ minutes.
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
[2024-09-06 20:33] VITALS: BP 99/59; PULSE 73; RESP 16; TEMP 36.3; O2SAT 96
[2024-09-06] MEDS: Prazosin HCL 1 MG CAPSULE PO (21:27)
[2024-09-06] MEDS: traZODone HCL 50 MG TABLET PO (21:27)
[2024-09-07 07:45] VITALS: BP 107/66; PULSE 72; RESP 16; TEMP 36.7; O2SAT 97
[2024-09-07] MEDS: methADONE HCl 20 MG/2 ML ORAL.CONC 95 MG PO (08:01)
[2024-09-07] MEDS: DULoxetine HCl 30 MG CAPSULE.DR PO (08:51)
[2024-09-07] MEDS: Thiamine HCL 100 MG TABLET PO (08:51)
[2024-09-07] MEDS: Nicotine 21 MG PATCH.TD24 TRANSDERMA (08:51)
[2024-09-07] MEDS: Acetaminophen 325 MG TABLET 650 MG PO (08:58)
[2024-09-07] MEDS: Lidocaine 4 % Patch ADH..PATCH 1 PATCH TRANSDERMA (09:01)
--- NOTE | 2024-09-07 10:17 | HO.PSYCHPN ---
Subjective Subjective Date of Service: 09/07/24 Reason For Visit: opioid use d/o, MDD, unspecified anxiety d/o Subjective Notes: Conditional Voluntary Interim History: Patient was seen and discussed in rounds today. Records and plans were reviewed. He has been doing a little better. He is more social, out and interactive. Hallucinations are somewhat improved. No SI. Eating and sleeping adequately. Medication compliant. CIWA was discontinued. Review of Systems Review of Systems Yes all other systems are reviewed and are negative Mental Status Exam Mental Status Exam Narrative: In today's visit he is alert, oriented and pleasant. Normal speech. Moderate eye contact. Affect is constricted. Admits to decrease in auditory hallucinations. No visual hallucinations. No overt delusions. Cognitively is grossly intact. No active SI. Moves all limbs. No gait abnormalities. Judgment is intact Diagnostics Vital Signs (24Hr): Vital Signs - 24 hr 09/06/24 20:33 09/07/24 07:45 Temperature 97.3 F 98.0 F Pulse Rate 73 72 Respiratory Rate 16 16 Blood Pressure 99/59 L 107/66 Pulse Oximetry 96 97 Oxygen Delivery Method Room Air Room Air BMI result Body Mass Index 26.0 Labs 09/05/24 07:57 Medications Medications Current Medications Acetaminophen (Acetaminophen 325 Mg Tablet) 650 mg PO Q6H PRN PRN Reason: Headache/Pain, Scale 1-10 Last Admin: 09/07/24 08:58 Dose: 650 mg Al Hydroxide/Mg Hydroxide (Magnesium Hydrox/Alum Hydrox 30 Ml Oral.Susp) 30 ml PO Q6H PRN PRN Reason: Heartburn/Nausea Duloxetine HCl (Duloxetine Hcl 30 Mg Capsule.Dr) 30 mg PO DAILY [facility] Last Admin: 09/07/24 08:51 Dose: 30 mg Hydroxyzine HCl (Hydroxyzine Hcl 25 Mg Tablet) 25 mg PO Q6H PRN PRN Reason: mild anxiety Last Admin: 09/05/24 16:57 Dose: 25 mg Lidocaine (Lidocaine 4 % Patch Adh..Patch) 1 patch TRANSDERMA DAILY PRN; Protocol PRN Reason: Pain, Moderate(Pain Scale 4-6) Last Admin: 09/07/24 09:01 Dose: 1 patch Lorazepam (Lorazepam 1 Mg Tablet) 1 mg PO Q2H PRN PRN Reason: CIWA 8-11 Lorazepam (Lorazepam 1 Mg Tablet) 2 mg PO Q2H PRN PRN Reason: CIWA 12-15 Lorazepam (Lorazepam 1 Mg Tablet) 3 mg PO Q2H PRN PRN Reason: CIWA > 15, and call Magnesium Hydroxide (Milk Of Magnesia 30 Ml Oral.Susp) 30 ml PO DAILY PRN PRN Reason: Constipation Last Admin: 09/05/24 10:09 Dose: 30 ml Methadone HCl (Methadone Hcl 20 Mg/2 Ml Oral.Conc) 95 mg PO DAILY [facility] Last Admin: 09/07/24 08:01 Dose: 95 mg Nicotine (Nicotine 21 Mg Patch.Td24) 21 mg TRANSDERMA DAILY [facility] Last Admin: 09/07/24 08:51 Dose: 21 mg Nicotine Polacrilex (Nicotine Polacrilex 2 Mg Gum) 4 mg BUCCAL Q2H PRN PRN Reason: Nicotine Cravings Olanzapine (Olanzapine 5 Mg Tablet) 5 mg PO Q4H PRN PRN Reason: Hallucinations Last Admin: 09/06/24 10:07 Dose: 5 mg Prazosin HCl (Prazosin Hcl 1 Mg Capsule) 1 mg PO BEDTIME [facility]; Protocol Last Admin: 09/06/24 21:27 Dose: 1 mg Thiamine HCl (Thiamine Hcl 100 Mg Tablet) 100 mg PO DAILY [facility] Last Admin: 09/07/24 08:51 Dose: 100 mg Trazodone HCl (Trazodone Hcl 50 Mg Tablet) 50 mg PO BEDTIME MRX1 PRN PRN Reason: Insomnia Last Admin: 09/06/24 21:27 Dose: 50 mg Allergies Allergies Allergy/AdvReac Type Severity Reaction Status Date / Time No Known Allergies Allergy Verified 09/04/24 16:39 Assessment & Plan Assessment & Plan (1) MDD (major depressive disorder): Status: Acute Code(s): F32.9 - Major depressive disorder, single episode, unspecified (2) PTSD (post-traumatic stress disorder): Status: Acute Code(s): F43.10 - Post-traumatic stress disorder, unspecified (3) Opioid use disorder: Status: Acute Code(s): F11.90 - Opioid use, unspecified, uncomplicated (4) Cocaine use disorder: Status: Acute Code(s): F14.10 - Cocaine abuse, uncomplicated (5) Homelessness: Status: Acute Code(s): Z59.00 - Homelessness unspecified Plan Patient is a 53-year-old male with history of MDD, PTSD, opiate use disorder and cocaine use disorder who self presented to crisis due to suicidal ideation secondary to increased depression and life stressors. Plan: CV 5 minute safety checks Continue home medications CIWA protocol Encourage groups Obtain collateral Referral to outpatient psychiatric providers Discharge planning 09/06: Continue current regimen and plans. Added lidocaine patch and p.r.n. Zyprexa 5 mg 09/07: Continue current regimen and plans. Discontinue CIWA Reason for continued inpatient stay Substantial Risk for: med/psych decompensation Time Spent With Patient Time: Total time managing care of this patient today ____ minutes.
[2024-09-07 20:00] VITALS: BP 101/61; PULSE 81; RESP 16; TEMP 36.7; O2SAT 97
[2024-09-07] MEDS: Prazosin HCL 1 MG CAPSULE PO (20:46)
[2024-09-07] MEDS: traZODone HCL 50 MG TABLET PO (20:51)
[2024-09-08 07:20] VITALS: BP 105/66; PULSE 69; RESP 12; TEMP 36.6; O2SAT 96
[2024-09-08] MEDS: methADONE HCl 20 MG/2 ML ORAL.CONC 95 MG PO (07:52)
[2024-09-08] MEDS: DULoxetine HCl 30 MG CAPSULE.DR PO (08:14)
[2024-09-08] MEDS: Thiamine HCL 100 MG TABLET PO (08:14)
[2024-09-08] MEDS: Nicotine 21 MG PATCH.TD24 TRANSDERMA (08:15)
--- NOTE | 2024-09-08 15:28 | P.PNPSI_ITS ---
Subjective Subjective Date of Service: 09/08/24 Reason For Visit: opioid use d/o, MDD, unspecified anxiety d/o Interim History: calm, cooperative. expressing gratitude. feeling more motivated to participate, started going to groups. would like trazodone increased to 100 QHS. per staff, using walker on 5 min checks. attended a couple groups yesterday. Mental Status Exam Mental Status Exam Narrative: alert, oriented and pleasant. Normal speech. Moderate eye contact. Affect is moderately flexible. no auditory hallucinations expressed. No visual hallucinations. No overt delusions. Cognitively is grossly intact. No active SI. Moves all limbs. No gait abnormalities. Judgment is intact Diagnostics Vital Signs (24Hr): Vital Signs - 24 hr 09/07/24 20:00 09/08/24 07:20 Temperature 98.1 F 97.9 F Pulse Rate 81 69 Respiratory Rate 16 12 Blood Pressure 101/61 105/66 Pulse Oximetry 97 96 Oxygen Delivery Method Room Air Room Air BMI result Body Mass Index 26.0 Labs 09/05/24 07:57 Medications Medications Current Medications Acetaminophen (Acetaminophen 325 Mg Tablet) 650 mg PO Q6H PRN PRN Reason: Headache/Pain, Scale 1-10 Last Admin: 09/07/24 08:58 Dose: 650 mg Al Hydroxide/Mg Hydroxide (Magnesium Hydrox/Alum Hydrox 30 Ml Oral.Susp) 30 ml PO Q6H PRN PRN Reason: Heartburn/Nausea Duloxetine HCl (Duloxetine Hcl 30 Mg Capsule.Dr) 30 mg PO DAILY [facility] Last Admin: 09/08/24 08:14 Dose: 30 mg Hydroxyzine HCl (Hydroxyzine Hcl 25 Mg Tablet) 25 mg PO Q6H PRN PRN Reason: mild anxiety Last Admin: 09/05/24 16:57 Dose: 25 mg Lidocaine (Lidocaine 4 % Patch Adh..Patch) 1 patch TRANSDERMA DAILY PRN; Protocol PRN Reason: Pain, Moderate(Pain Scale 4-6) Last Admin: 09/07/24 09:01 Dose: 1 patch Magnesium Hydroxide (Milk Of Magnesia 30 Ml Oral.Susp) 30 ml PO DAILY PRN PRN Reason: Constipation Last Admin: 09/05/24 10:09 Dose: 30 ml Methadone HCl (Methadone Hcl 20 Mg/2 Ml Oral.Conc) 95 mg PO DAILY [facility] Last Admin: 09/08/24 07:52 Dose: 95 mg Nicotine (Nicotine 21 Mg Patch.Td24) 21 mg TRANSDERMA DAILY [facility] Last Admin: 09/08/24 08:15 Dose: 21 mg Nicotine Polacrilex (Nicotine Polacrilex 2 Mg Gum) 4 mg BUCCAL Q2H PRN PRN Reason: Nicotine Cravings Olanzapine (Olanzapine 5 Mg Tablet) 5 mg PO Q4H PRN PRN Reason: Hallucinations Last Admin: 09/06/24 10:07 Dose: 5 mg Prazosin HCl (Prazosin Hcl 1 Mg Capsule) 1 mg PO BEDTIME [facility]; Protocol Last Admin: 09/07/24 20:46 Dose: 1 mg Thiamine HCl (Thiamine Hcl 100 Mg Tablet) 100 mg PO DAILY [facility] Last Admin: 09/08/24 08:14 Dose: 100 mg Trazodone HCl (Trazodone Hcl 100 Mg Tablet) 100 mg PO BEDTIME [facility] Trazodone HCl (Trazodone Hcl 50 Mg Tablet) 50 mg PO BEDTIME PRN PRN Reason: insomnia Allergies Allergies Allergy/AdvReac Type Severity Reaction Status Date / Time No Known Allergies Allergy Verified 09/04/24 16:39 Assessment & Plan Assessment & Plan (1) MDD (major depressive disorder): Status: Acute Code(s): F32.9 - Major depressive disorder, single episode, unspecified (2) PTSD (post-traumatic stress disorder): Status: Acute Code(s): F43.10 - Post-traumatic stress disorder, unspecified (3) Opioid use disorder: Status: Acute Code(s): F11.90 - Opioid use, unspecified, uncomplicated (4) Cocaine use disorder: Status: Acute Code(s): F14.10 - Cocaine abuse, uncomplicated (5) Homelessness: Status: Acute Code(s): Z59.00 - Homelessness unspecified Plan Patient is a 53-year-old male with history of MDD, PTSD, opiate use disorder and cocaine use disorder who self presented to crisis due to suicidal ideation secondary to increased depression and life stressors. Plan: CV 5 minute safety checks Continue home medications CIWA protocol Encourage groups Obtain collateral Referral to outpatient psychiatric providers Discharge planning 09/06: Continue current regimen and plans. Added lidocaine patch and p.r.n. Zyprexa 5 mg 09/07: Continue current regimen and plans. Discontinue CIWA. 09/08: increase trazodone to 100 QHS. feeling in better mood, fewer psychotic symptoms, more motivated. started attending groups. continue current mgmt otherwise. Reason for continued inpatient stay Substantial Risk for: inability to function and rapid decompensation Time Spent With Patient Time: Total time managing care of this patient today __25__ minutes.
[2024-09-08 20:00] VITALS: BP 116/80; PULSE 92; RESP 16; TEMP 36.6; O2SAT 99
[2024-09-08] MEDS: Prazosin HCL 1 MG CAPSULE PO (20:46)
[2024-09-08] MEDS: traZODone HCL 100 MG TABLET PO (20:52)
[2024-09-08] MEDS: Lidocaine 4 % Patch ADH..PATCH 1 PATCH TRANSDERMA (21:37)
[2024-09-09 07:00] VITALS: BP 102/56; PULSE 74; RESP 16; TEMP 36.6; O2SAT 95
[2024-09-09] MEDS: methADONE HCl 20 MG/2 ML ORAL.CONC 95 MG PO (07:53)
[2024-09-09] MEDS: Thiamine HCL 100 MG TABLET PO (08:15)
[2024-09-09] MEDS: Nicotine 21 MG PATCH.TD24 TRANSDERMA (08:15)
[2024-09-09] MEDS: DULoxetine HCl 30 MG CAPSULE.DR PO (08:15)
--- NOTE | 2024-09-09 09:14 | HO.PSYCHPN ---
Subjective Subjective Date of Service: 09/09/24 Reason For Visit: opioid use d/o, MDD, unspecified anxiety d/o Subjective Notes: Conditional Voluntary Interim History: Active on unit, social with peers. attending groups. Pt reports feeling a little bit better today; he reports groups have been helpful. Pt is hoping to obtain a bed at [facility]; renal social worker aware. He continues to report auditory hallucinations but states he can't make out what they are saying . denies SI/HI/VH. Medication Compliance: Yes Side effects from medications: No Attending Groups: Yes Mental Status Exam Mental Status Exam Narrative: Pt is alert and oriented; behavior is cooperative and calm; dressed in casual attire; mood is described as a little better ; eye contact appropriate; Speech is normal rate, volume and not pressured; thought process is organized and goal directed; Thought content is on tx; denies SI/HI/VH. +AH can't make out what they are saying . Diagnostics Vital Signs (24Hr): Vital Signs - 24 hr 09/08/24 20:00 09/09/24 07:00 Temperature 98 F 97.9 F Pulse Rate 92 74 Respiratory Rate 16 16 Blood Pressure 116/80 102/56 L Pulse Oximetry 99 95 Oxygen Delivery Method Room Air Room Air BMI result Body Mass Index 26.0 Labs 09/05/24 07:57 Medications Medications Current Medications Acetaminophen (Acetaminophen 325 Mg Tablet) 650 mg PO Q6H PRN PRN Reason: Headache/Pain, Scale 1-10 Last Admin: 09/07/24 08:58 Dose: 650 mg Al Hydroxide/Mg Hydroxide (Magnesium Hydrox/Alum Hydrox 30 Ml Oral.Susp) 30 ml PO Q6H PRN PRN Reason: Heartburn/Nausea Duloxetine HCl (Duloxetine Hcl 30 Mg Capsule.Dr) 30 mg PO DAILY [facility] Last Admin: 09/09/24 08:15 Dose: 30 mg Hydroxyzine HCl (Hydroxyzine Hcl 25 Mg Tablet) 25 mg PO Q6H PRN PRN Reason: mild anxiety Last Admin: 09/05/24 16:57 Dose: 25 mg Lidocaine (Lidocaine 4 % Patch Adh..Patch) 1 patch TRANSDERMA DAILY PRN; Protocol PRN Reason: Pain, Moderate(Pain Scale 4-6) Last Admin: 09/08/24 21:37 Dose: 1 patch Magnesium Hydroxide (Milk Of Magnesia 30 Ml Oral.Susp) 30 ml PO DAILY PRN PRN Reason: Constipation Last Admin: 09/05/24 10:09 Dose: 30 ml Methadone HCl (Methadone Hcl 20 Mg/2 Ml Oral.Conc) 95 mg PO DAILY [facility] Last Admin: 09/09/24 07:53 Dose: 95 mg Nicotine (Nicotine 21 Mg Patch.Td24) 21 mg TRANSDERMA DAILY [facility] Last Admin: 09/09/24 08:15 Dose: 21 mg Nicotine Polacrilex (Nicotine Polacrilex 2 Mg Gum) 4 mg BUCCAL Q2H PRN PRN Reason: Nicotine Cravings Olanzapine (Olanzapine 5 Mg Tablet) 5 mg PO Q4H PRN PRN Reason: Hallucinations Last Admin: 09/06/24 10:07 Dose: 5 mg Prazosin HCl (Prazosin Hcl 1 Mg Capsule) 1 mg PO BEDTIME [facility]; Protocol Last Admin: 09/08/24 20:46 Dose: 1 mg Thiamine HCl (Thiamine Hcl 100 Mg Tablet) 100 mg PO DAILY [facility] Last Admin: 09/09/24 08:15 Dose: 100 mg Trazodone HCl (Trazodone Hcl 100 Mg Tablet) 100 mg PO BEDTIME [facility] Last Admin: 09/08/24 20:52 Dose: 100 mg Trazodone HCl (Trazodone Hcl 50 Mg Tablet) 50 mg PO BEDTIME PRN PRN Reason: insomnia Allergies Allergies Allergy/AdvReac Type Severity Reaction Status Date / Time No Known Allergies Allergy Verified 09/04/24 16:39 Assessment & Plan Assessment & Plan (1) MDD (major depressive disorder): Status: Acute Code(s): F32.9 - Major depressive disorder, single episode, unspecified (2) PTSD (post-traumatic stress disorder): Status: Acute Code(s): F43.10 - Post-traumatic stress disorder, unspecified (3) Opioid use disorder: Status: Acute Code(s): F11.90 - Opioid use, unspecified, uncomplicated (4) Cocaine use disorder: Status: Acute Code(s): F14.10 - Cocaine abuse, uncomplicated (5) Homelessness: Status: Acute Code(s): Z59.00 - Homelessness unspecified Plan Patient is a 53-year-old male with history of MDD, PTSD, opiate use disorder and cocaine use disorder who self presented to crisis due to suicidal ideation secondary to increased depression and life stressors. Plan: CV 5 minute safety checks Continue home medications CIWA protocol Encourage groups Obtain collateral Referral to outpatient psychiatric providers Discharge planning 09/06: Continue current regimen and plans. Added lidocaine patch and p.r.n. Zyprexa 5 mg 09/07: Continue current regimen and plans. Discontinue CIWA. 09/08: increase trazodone to 100 QHS. feeling in better mood, fewer psychotic symptoms, more motivated. started attending groups. continue current mgmt otherwise. 09/09: Active on unit, social with peers. attending groups. Pt reports feeling a little bit better today; he reports groups have been helpful. Pt is hoping to obtain a bed at [facility]; renal social worker aware. He continues to report auditory hallucinations but states he can't make out what they are saying . denies SI/HI/VH. Continue current tx plan. Patient educated on: diagnosis, medication risk/benefits and therapeutic strategies Reason for continued inpatient stay Substantial Risk for: med/psych decompensation Time Spent With Patient Time: Total time managing care of this patient today _20___ minutes.
[2024-09-09 09:38] VITALS: BP 120/67; PULSE 77
[2024-09-09 21:27] VITALS: BP 117/66; PULSE 69; RESP 16; TEMP 36.9; O2SAT 99
[2024-09-09] MEDS: Prazosin HCL 1 MG CAPSULE PO (21:28)
[2024-09-09] MEDS: Acetaminophen 325 MG TABLET 650 MG PO (21:29)
[2024-09-09] MEDS: traZODone HCL 100 MG TABLET PO (21:29)
[2024-09-09] MEDS: hydrOXYzine HCL 25 MG TABLET PO (21:31)
[2024-09-09] MEDS: Nicotine Polacrilex 2 MG GUM 4 MG BUCCAL (21:31)
[2024-09-09] MEDS: Lidocaine 4 % Patch ADH..PATCH 1 PATCH TRANSDERMA (21:45)
[2024-09-10 07:34] VITALS: BP 117/69; PULSE 71; RESP 16; TEMP 36.8; O2SAT 98
[2024-09-10] MEDS: methADONE HCl 20 MG/2 ML ORAL.CONC 95 MG PO (07:37)
[2024-09-10] MEDS: Nicotine 21 MG PATCH.TD24 TRANSDERMA (08:09)
[2024-09-10] MEDS: Thiamine HCL 100 MG TABLET PO (08:09)
[2024-09-10] MEDS: DULoxetine HCl 30 MG CAPSULE.DR PO (08:09)
--- NOTE | 2024-09-10 09:12 | P.PNPSI_ITS ---
Subjective Subjective Date of Service: 09/10/24 Reason For Visit: opioid use d/o, MDD, unspecified anxiety d/o Subjective Notes: Conditional Voluntary Interim History: Active on unit, social with peers. attending groups. Pt reports feeling better today; anxious about discharge and if he will be able to go to a program. focused on sobriety. per nursing, slept 7 hours. denies SI/HI/VH/AH. Medication Compliance: Yes Side effects from medications: No Attending Groups: Yes Mental Status Exam Mental Status Exam Narrative: Pt is alert and oriented; behavior is cooperative and calm; dressed in casual attire; mood is described as better ; eye contact appropriate; Speech is normal rate, volume and not pressured; thought process is organized and goal directed; Thought content is on tx; denies SI/HI/VH/AH. Diagnostics Vital Signs (24Hr): Vital Signs - 24 hr 09/09/24 09:38 09/09/24 21:27 09/10/24 07:34 Temperature 98.4 F 98.2 F Pulse Rate 77 69 71 Respiratory Rate 16 16 Blood Pressure 120/67 117/66 117/69 Pulse Oximetry 99 98 Oxygen Delivery Method Room Air Room Air BMI result Body Mass Index 26.0 Labs 09/05/24 07:57 Medications Medications Current Medications Acetaminophen (Acetaminophen 325 Mg Tablet) 650 mg PO Q6H PRN PRN Reason: Headache/Pain, Scale 1-10 Last Admin: 09/09/24 21:29 Dose: 650 mg Al Hydroxide/Mg Hydroxide (Magnesium Hydrox/Alum Hydrox 30 Ml Oral.Susp) 30 ml PO Q6H PRN PRN Reason: Heartburn/Nausea Duloxetine HCl (Duloxetine Hcl 30 Mg Capsule.Dr) 30 mg PO DAILY [facility] Last Admin: 09/10/24 08:09 Dose: 30 mg Hydroxyzine HCl (Hydroxyzine Hcl 25 Mg Tablet) 25 mg PO Q6H PRN PRN Reason: mild anxiety Last Admin: 09/09/24 21:31 Dose: 25 mg Lidocaine (Lidocaine 4 % Patch Adh..Patch) 1 patch TRANSDERMA DAILY PRN; Protocol PRN Reason: Pain, Moderate(Pain Scale 4-6) Last Admin: 09/09/24 21:45 Dose: 1 patch Magnesium Hydroxide (Milk Of Magnesia 30 Ml Oral.Susp) 30 ml PO DAILY PRN PRN Reason: Constipation Last Admin: 09/05/24 10:09 Dose: 30 ml Methadone HCl (Methadone Hcl 20 Mg/2 Ml Oral.Conc) 95 mg PO DAILY [facility] Last Admin: 09/10/24 07:37 Dose: 95 mg Nicotine (Nicotine 21 Mg Patch.Td24) 21 mg TRANSDERMA DAILY [facility] Last Admin: 09/10/24 08:09 Dose: 21 mg Nicotine Polacrilex (Nicotine Polacrilex 2 Mg Gum) 4 mg BUCCAL Q2H PRN PRN Reason: Nicotine Cravings Last Admin: 09/09/24 21:31 Dose: 4 mg Olanzapine (Olanzapine 5 Mg Tablet) 5 mg PO Q4H PRN PRN Reason: Hallucinations Last Admin: 09/06/24 10:07 Dose: 5 mg Prazosin HCl (Prazosin Hcl 1 Mg Capsule) 1 mg PO BEDTIME [facility]; Protocol Last Admin: 09/09/24 21:28 Dose: 1 mg Thiamine HCl (Thiamine Hcl 100 Mg Tablet) 100 mg PO DAILY [facility] Last Admin: 09/10/24 08:09 Dose: 100 mg Trazodone HCl (Trazodone Hcl 100 Mg Tablet) 100 mg PO BEDTIME [facility] Last Admin: 09/09/24 21:29 Dose: 100 mg Trazodone HCl (Trazodone Hcl 50 Mg Tablet) 50 mg PO BEDTIME PRN PRN Reason: insomnia Allergies Allergies Allergy/AdvReac Type Severity Reaction Status Date / Time No Known Allergies Allergy Verified 09/04/24 16:39 Assessment & Plan Assessment & Plan (1) MDD (major depressive disorder): Status: Acute Code(s): F32.9 - Major depressive disorder, single episode, unspecified (2) PTSD (post-traumatic stress disorder): Status: Acute Code(s): F43.10 - Post-traumatic stress disorder, unspecified (3) Opioid use disorder: Status: Acute Code(s): F11.90 - Opioid use, unspecified, uncomplicated (4) Cocaine use disorder: Status: Acute Code(s): F14.10 - Cocaine abuse, uncomplicated (5) Homelessness: Status: Acute Code(s): Z59.00 - Homelessness unspecified Plan Patient is a 53-year-old male with history of MDD, PTSD, opiate use disorder and cocaine use disorder who self presented to crisis due to suicidal ideation secondary to increased depression and life stressors. Plan: CV 5 minute safety checks Continue home medications CIWA protocol Encourage groups Obtain collateral Referral to outpatient psychiatric providers Discharge planning 09/06: Continue current regimen and plans. Added lidocaine patch and p.r.n. Zyprexa 5 mg 09/07: Continue current regimen and plans. Discontinue CIWA. 09/08: increase trazodone to 100 QHS. feeling in better mood, fewer psychotic symptoms, more motivated. started attending groups. continue current mgmt otherwise. 09/09: Active on unit, social with peers. attending groups. Pt reports feeling a little bit better today; he reports groups have been helpful. Pt is hoping to obtain a bed at [facility]; social work specialist aware. He continues to report auditory hallucinations but states he can't make out what they are saying . denies SI/HI/VH. Continue current tx plan. 09/10: Active on unit, social with peers. attending groups. Pt reports feeling better today; anxious about discharge and if he will be able to go to a program. focused on sobriety. per nursing, slept 7 hours. denies SI/HI/VH/AH. Continue current tx plan. Patient educated on: diagnosis, medication risk/benefits and therapeutic strategies Reason for continued inpatient stay Substantial Risk for: med/psych decompensation Time Spent With Patient Time: Total time managing care of this patient today _20___ minutes.
[2024-09-10 19:43] VITALS: BP 110/78; PULSE 76; RESP 16; TEMP 36.4; O2SAT 98
[2024-09-10 21:52] VITALS: BP 110/56
[2024-09-10] MEDS: Prazosin HCL 1 MG CAPSULE PO (21:52)
[2024-09-10] MEDS: traZODone HCL 100 MG TABLET PO (21:52)
[2024-09-11 07:38] VITALS: BP 109/65; PULSE 65; RESP 16; TEMP 36.8; O2SAT 99
[2024-09-11] MEDS: methADONE HCl 20 MG/2 ML ORAL.CONC 95 MG PO (07:53)
[2024-09-11] MEDS: Thiamine HCL 100 MG TABLET PO (08:07)
[2024-09-11] MEDS: DULoxetine HCl 30 MG CAPSULE.DR PO (08:07)
[2024-09-11] MEDS: Nicotine 21 MG PATCH.TD24 TRANSDERMA (08:08)
[2024-09-11] MEDS: Lidocaine 4 % Patch ADH..PATCH 1 PATCH TRANSDERMA (08:35)
--- NOTE | 2024-09-11 09:44 | HO.PSYCHPN ---
Subjective Subjective Reason For Visit: opioid use d/o, MDD, unspecified anxiety d/o Diagnostics Vital Signs (24Hr): Vital Signs - 24 hr 09/10/24 19:43 09/10/24 21:52 09/11/24 07:38 Temperature 97.6 F 98.2 F Pulse Rate 76 65 Respiratory Rate 16 16 Blood Pressure 110/78 110/56 L 109/65 Pulse Oximetry 98 99 Oxygen Delivery Method Room Air Room Air BMI result Body Mass Index 26.0 Labs 09/05/24 07:57 Medications Medications Current Medications Acetaminophen (Acetaminophen 325 Mg Tablet) 650 mg PO Q6H PRN PRN Reason: Headache/Pain, Scale 1-10 Last Admin: 09/09/24 21:29 Dose: 650 mg Al Hydroxide/Mg Hydroxide (Magnesium Hydrox/Alum Hydrox 30 Ml Oral.Susp) 30 ml PO Q6H PRN PRN Reason: Heartburn/Nausea Duloxetine HCl (Duloxetine Hcl 30 Mg Capsule.Dr) 30 mg PO DAILY [facility] Last Admin: 09/11/24 08:07 Dose: 30 mg Hydroxyzine HCl (Hydroxyzine Hcl 25 Mg Tablet) 25 mg PO Q6H PRN PRN Reason: mild anxiety Last Admin: 09/09/24 21:31 Dose: 25 mg Lidocaine (Lidocaine 4 % Patch Adh..Patch) 1 patch TRANSDERMA DAILY PRN; Protocol PRN Reason: Pain, Moderate(Pain Scale 4-6) Last Admin: 09/11/24 08:35 Dose: 1 patch Magnesium Hydroxide (Milk Of Magnesia 30 Ml Oral.Susp) 30 ml PO DAILY PRN PRN Reason: Constipation Last Admin: 09/05/24 10:09 Dose: 30 ml Methadone HCl (Methadone Hcl 20 Mg/2 Ml Oral.Conc) 95 mg PO DAILY [facility] Last Admin: 09/11/24 07:53 Dose: 95 mg Nicotine (Nicotine 21 Mg Patch.Td24) 21 mg TRANSDERMA DAILY [facility] Last Admin: 09/11/24 08:08 Dose: 21 mg Nicotine Polacrilex (Nicotine Polacrilex 2 Mg Gum) 4 mg BUCCAL Q2H PRN PRN Reason: Nicotine Cravings Last Admin: 09/09/24 21:31 Dose: 4 mg Olanzapine (Olanzapine 5 Mg Tablet) 5 mg PO Q4H PRN PRN Reason: Hallucinations Last Admin: 09/06/24 10:07 Dose: 5 mg Prazosin HCl (Prazosin Hcl 1 Mg Capsule) 1 mg PO BEDTIME [facility]; Protocol Last Admin: 09/10/24 21:52 Dose: 1 mg Thiamine HCl (Thiamine Hcl 100 Mg Tablet) 100 mg PO DAILY [facility] Last Admin: 09/11/24 08:07 Dose: 100 mg Trazodone HCl (Trazodone Hcl 100 Mg Tablet) 100 mg PO BEDTIME [facility] Last Admin: 09/10/24 21:52 Dose: 100 mg Trazodone HCl (Trazodone Hcl 50 Mg Tablet) 50 mg PO BEDTIME PRN PRN Reason: insomnia Allergies Allergies Allergy/AdvReac Type Severity Reaction Status Date / Time No Known Allergies Allergy Verified 09/04/24 16:39 Assessment & Plan Assessment & Plan (1) MDD (major depressive disorder): Status: Acute Code(s): F32.9 - Major depressive disorder, single episode, unspecified (2) PTSD (post-traumatic stress disorder): Status: Acute Code(s): F43.10 - Post-traumatic stress disorder, unspecified (3) Opioid use disorder: Status: Acute Code(s): F11.90 - Opioid use, unspecified, uncomplicated (4) Cocaine use disorder: Status: Acute Code(s): F14.10 - Cocaine abuse, uncomplicated (5) Homelessness: Status: Acute Code(s): Z59.00 - Homelessness unspecified Plan Patient is a 53-year-old male with history of MDD, PTSD, opiate use disorder and cocaine use disorder who self presented to crisis due to suicidal ideation secondary to increased depression and life stressors. Plan: CV 5 minute safety checks Continue home medications CIWA protocol Encourage groups Obtain collateral Referral to outpatient psychiatric providers Discharge planning 09/06: Continue current regimen and plans. Added lidocaine patch and p.r.n. Zyprexa 5 mg 09/07: Continue current regimen and plans. Discontinue CIWA. 09/08: increase trazodone to 100 QHS. feeling in better mood, fewer psychotic symptoms, more motivated. started attending groups. continue current mgmt otherwise. 09/09: Active on unit, social with peers. attending groups. Pt reports feeling a little bit better today; he reports groups have been helpful. Pt is hoping to obtain a bed at [facility]; home health care social worker aware. He continues to report auditory hallucinations but states he can't make out what they are saying . denies SI/HI/VH. Continue current tx plan. 09/10: Active on unit, social with peers. attending groups. Pt reports feeling better today; anxious about discharge and if he will be able to go to a program. focused on sobriety. per nursing, slept 7 hours. denies SI/HI/VH/AH. Continue current tx plan. Time Spent With Patient Time: Total time managing care of this patient today ____ minutes.
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
== END 2024-09-11 14:08 | disposition home or self-care (01) | DRG 754 ==
PROVIDERS: Admitting Provider Psychiatry & Neurology Psychiatry; PCP Dentist General Practice; Responsible Provider Registered Nurse; Visit Provider Psychiatry & Neurology Psychiatry
DX: F32.9 Major depressive disorder, single episode, unspecified (principal); R45.851 Suicidal ideations; F11.20 Opioid dependence, uncomplicated; F17.210 Nicotine dependence, cigarettes, uncomplicated; F43.10 Post-traumatic stress disorder, unspecified; F14.10 Cocaine abuse, uncomplicated; Z59.02 Unsheltered homelessness; Z71.6 Tobacco abuse counseling; Z79.899 Other long term (current) drug therapy
CPT/HCPCS: 36415; 80053; 80061; 83036

== ENCOUNTER → 2024-09-04 16:04 | Outpatient (BNV) | payer OTHER, SELFPAY | PROVIDERS: Admitting Provider Psychiatry & Neurology Psychiatry; PCP Dentist General Practice; Responsible Provider Registered Nurse; Visit Provider Psychiatry & Neurology Psychiatry | DX: F32.2 Major depressive disorder, single episode, severe without psychotic features (principal); F14.10 Cocaine abuse, uncomplicated; F11.90 Opioid use, unspecified, uncomplicated; F43.10 Post-traumatic stress disorder, unspecified; Z59.00 Homelessness unspecified | CPT/HCPCS: 90792; 99231; 99232; 99499 ==

== ENCOUNTER → 2024-09-04 16:04 | Outpatient (BNV) | payer OTHER, SELFPAY | PROVIDERS: Admitting Provider Psychiatry & Neurology Psychiatry; PCP Dentist General Practice; Responsible Provider Registered Nurse; Visit Provider Nurse Practitioner Family | DX: Z02.2 Encounter for examination for admission to residential institution (principal); F32.9 Major depressive disorder, single episode, unspecified | CPT/HCPCS: 99429 ==

== ENCOUNTER 2024-10-16 12:04 | Emergency (ER) | payer OTHER, SELFPAY ==
--- NOTE | ~2024-10-16 | XR_ITS ---
EXAMINATION: XR ABDOMEN KUB CLINICAL INDICATION: consitpation x5 days, on opioids COMPARISON: None available. TECHNIQUE: AP view of the abdomen. FINDINGS: Bowel gas pattern is normal/nonspecific. There is no focally dilated loop. There is an extensive stool burden seen throughout the colon and rectum. There is a 10 cm stool ball within the rectum. No definite abnormal soft tissue calcifications. Lung bases clear. No acute or suspicious osseous abnormality. XR/XR KUB IMPRESSION: 1. Moderate to severe constipation. 2. No bowel obstruction. Electronically signed by: Marcos Keita MD 10/16/2024 01:01 PM EDT
[2024-10-16 12:15] VITALS: BP 112/71; PULSE 115; RESP 18; TEMP 36.6; O2SAT 95; BMI 24.1
--- NOTE | 2024-10-16 12:20 | ED.GENADULT ---
HPI - General Adult General Chief complaint: General Medical Stated complaint: Constipation Time Seen by Provider: 10/16/24 16:23 Source: patient Mode of arrival: ambulatory Limitations: no limitations History of Present Illness ED Provider: HPI narrative: Patient with History of constipation and opiate use been constipated over 7 days only liquid stool coming out and feels stool in his rectum patient has a KUB done which showed 10 cm stool ball in the rectum no nausea no vomiting Related Data Home Medications ?Medication ?Instructions ?Recorded ?Confirmed methadone 10 mg/mL oral concentrate 95 mg PO DAILY 09/04/24 09/05/24 Previous Rx's ?Medication ?Instructions ?Recorded duloxetine 30 mg capsule,delayed 30 mg PO DAILY 30 days #30 caps 09/11/24 release (Cymbalta) hydroxyzine HCl 25 mg tablet 25 mg PO TID PRN mild anxiety 30 09/11/24 days #90 tabs prazosin 1 mg capsule 1 mg PO BEDTIME 30 days #30 caps 09/11/24 trazodone 100 mg tablet 100 mg PO BEDTIME 30 days #30 tabs 09/11/24 bisacodyl 5 mg tablet,delayed 10 mg (2 x 5 mg) PO BEDTIME PRN 10/16/24 release (Dulcolax (bisacodyl)) constipation #30 tabs polyethylene glycol 3350 17 17 g PO DAILY #510 grams 10/16/24 gram/dose oral powder (Miralax) Allergies Allergy/AdvReac Type Severity Reaction Status Date / Time No Known Allergies Allergy Verified 10/16/24 12:18 [facility] Social History Social History Household Members: None Housing: Homeless Do you presently have visiting nurse or other home services: No Patient Tobacco Use Status: Current everyday Tobacco user Tobacco use type: Cigarette Cigarettes Per Day: 4 e-Cigarette/Vaping Use: Former Use Second Hand Smoke Exposure: No Substance Use Type: Crack/Cocaine and Heroin Advance Directives: No Advance Directives Information Provided: Yes Do you have a plan to hurt others: No Plan service: No Sexual orientation: Straight/Heterosexual Physical Exam ED Vital Signs: Vital Signs - 24 hr 10/16/24 12:15 10/16/24 16:00 Temperature 98 F 98.5 F Pulse Rate 115 H 75 Respiratory Rate 18 16 Blood Pressure 112/71 133/74 Pulse Oximetry 95 100 Oxygen Delivery Method Room Air Room Air BMI result Body Mass Index 24.1 Appearance: Alert. Oriented X3. No acute distress. Eyes: PERRLA, No Nystagmus ENT: Pharynx normal. Oral Mucosa moist Neck: Normal inspection. Neck supple. CVS: Normal heart rate and rhythm. Pulses normal. Respiratory: No respiratory distress. Equal air entry bilateral, no wheezing/rales/rhonchi Abdomen: Soft and nontender. Bowel sounds are present, no mass palpable, no CVA tenderness Skin: Skin warm and dry. Normal skin color. Normal skin turgor. Extremities: No lower extremity edema. No calf tenderness Neuro: Oriented X 3. No motor deficit. No sensory deficit.No cerebellar signs , cranial nerves II-XII intact Course Course Course Narrative: 10/16/24 12[address] [place] This is a Rapid Medical Examination (RME) performed by Lino Medina PA-C in triage. Full HPI, ROS, assessment and treatment plan per primary provider in the Main ED. Hx: 53 yo M hx of coaine use disorder, opioid use disorder, PTSD, MDD here w/ 5 days of lower abd pain, rectal pain, constipation. reports noticing blood on toilet paper after BM. Plan: labs, KUB, UA Medications Administered Discontinued Medications Generic Name Dose Route Start Last Admin Trade Name Freq PRN Reason Stop Dose Admin Bisacodyl 10 mg 10/16/24 17:05 10/16/24 17:23 Bisacodyl 5 Mg Tablet.Dr PO 10/16/24 17:06 10 mg ONCE ONE Administration Magnesium Hydroxide 30 ml 10/16/24 17:05 10/16/24 17:23 Milk Of Magnesia 30 Ml Oral.Susp PO 10/16/24 17:06 30 ml ONCE ONE Administration Medical Decision Making Medical Decision Making [facility] Narrative: Patient with chronic opiate use and constipation manual disimpaction done patient has had a good bowel movement after the advised to continue to use stool softener on daily basis Lab Data [facility] Lab Attestation statement: I reviewed the patient's lab results. 10/16/24 12:34 10/16/24 12:34 Labs: Lab Results 10/16/24 Range/Units 12:34 WBC 9.3 (4.8-10.8) X10*3/uL RBC 5.06 (4.60-5.80) X10*6/uL Hgb 14.3 (14.0-18.0) g/dl Hct 41.0 L (42.0-52.0) % MCV 81.0 (80.0-98.0) fL MCH 28.3 (27.0-33.0) pg MCHC 34.9 (31.0-36.0) g/dl RDW 12.3 (11.0-16.0) % Plt Count 275 (160-400) X10*3/uL MPV 10.2 (9.4-12.4) fL Immature Gran % (Auto) 0.3 (0.0-0.4) % Neut % (Auto) 75.0 H (45-73) % Lymph % (Auto) 15.4 L (20-40) % Lander % (Auto) 8.6 (2-11) % Eos % (Auto) 0.2 (0-4) % Baso % (Auto) 0.5 (0-2) % Lymph # (Auto) 1.4 (1.2-4.9) X10*3/uL Lander # (Auto) 0.8 (0.1-1.2) X10*3/uL Eos # (Auto) 0.0 (0.0-0.4) X10*3/uL Baso # (Auto) 0.1 (0.0-0.2) X10*3/uL Abs Immat Gran (auto) 0.03 (0.00-0.03) X10*3/uL Absolute Neuts (auto) 6.9 (2.0-8.3) x10*3/uL Absolute Nucleated RBC 0.000 (0.0-0.012) X10*3/uL Nucleated RBC % (auto) 0.0 (0.0-0.2) /100WBC Sodium 140 (135-145) mmol/L Potassium 4.2 (3.3-5.1) mmol/L Chloride 102 (96-108) mmol/L Carbon Dioxide 27 (22-29) mmol/L Anion Gap 15 (12-20) BUN 22 H (9-16) mg/dL Creatinine 1.44 H (0.5-1.4) mg/dL Estim Creat Clear Calc 58.6 Estimated GFR 51 Random Glucose 100 (60-115) mg/dL Calcium 10.2 (8.4-10.2) mg/dL Magnesium 2.1 (1.6-2.6) mg/dL Total Bilirubin 0.8 (0.0-1.0) mg/dL AST 40 H (5-37) U/L ALT 27 (0-40) U/L Alkaline Phosphatase 42 (39-117) U/L Total Protein 7.8 (6.5-8.0) g/dL Albumin 4.5 (3.5-5.0) g/dL Independent Interpretation I performed an independent interpretation of an: Plain X-Ray Radiology Impression Discussion of test interpretation with radiology: I have reviewed the radiologist's reading. Discharge Plan Discharge Clinical Impression: Constipation Patient Disposition: Home, Self-Care Instructions: Constipation (ED) Additional Instructions: Take stool softener as prescribed on daily basis Prescriptions: New polyethylene glycol 3350 [Miralax] 17 gram/dose powder 17 g PO DAILY Qty: 510 0RF bisacodyl [Dulcolax (bisacodyl)] 5 mg tablet,delayed release (DR/EC) 10 mg PO BEDTIME PRN (Reason: constipation) Qty: 30 0RF No Action methadone 10 mg/mL Concentrate 95 mg PO DAILY trazodone 100 mg Tablet 100 mg PO BEDTIME 30 Days Qty: 30 0RF hydroxyzine HCl 25 mg Tablet 25 mg PO TID PRN (Reason: mild anxiety) 30 Days Qty: 90 0RF prazosin 1 mg Capsule 1 mg PO BEDTIME 30 Days Qty: 30 0RF duloxetine [Cymbalta] 30 mg Capsule,Delayed Release(Dr/Ec) 30 mg PO DAILY 30 Days Qty: 30 0RF Print Language: Sudanese
[2024-10-16 12:39] LABS: MANUAL DIFF FLAG NO
[2024-10-16 12:43] LABS: Basophils Absolute Auto 0.1 X10*3/uL (0.0-0.2); Basophils Percent Auto 0.5 % (0-2); Eosinophils Percent Auto 0.2 % (0-4); Hemoglobin 14.3 g/dl (14.0-18.0); Imm Gran Abs Auto 0.03 X10*3/uL (0.00-0.03); Imm Gran Pct Auto 0.3 % (0.0-0.4); Lymphocytes Absolute Auto 1.4 X10*3/uL (1.2-4.9); Lymphocytes Percent Auto 15.4 % (20-40); Mean Corpuscular HGB Conc 34.9 g/dl (31.0-36.0); Mean Corpuscular Hemoglobin 28.3 pg (27.0-33.0); Mean Platelet Volume 10.2 fL (9.4-12.4); Monocytes Absolute Auto 0.8 X10*3/uL (0.1-1.2); Monocytes Percent Auto 8.6 % (2-11); Neutrophils Absolute Auto 6.9 x10*3/uL (2.0-8.3); Platelet Count 275 X10*3/uL (160-400); Red Blood Count 5.06 X10*6/uL (4.60-5.80); Red Cell Distribution Width 12.3 % (11.0-16.0); White Blood Count 9.3 X10*3/uL (4.8-10.8)
[2024-10-16 12:55] LABS: Alanine Aminotransferase 27 U/L (0-40); Albumin Level 4.5 g/dL (3.5-5.0); Alkaline Phosphatase 42 U/L (39-117); Anion Gap 15 (12-20); Aspartate Amino Transferase 40 U/L (5-37); Bilirubin Total 0.8 mg/dL (0.0-1.0); Blood Urea Nitrogen 22 mg/dL (9-16); Calcium 10.2 mg/dL (8.4-10.2); Carbon Dioxide 27 mmol/L (22-29); Chloride 102 mmol/L (96-108); Creatinine Clr Calc Pharmacy 58.6; Estimated Glomerular Filt Rate 51; Glucose Random 100 mg/dL (60-115); Magnesium 2.1 mg/dL (1.6-2.6); Potassium 4.2 mmol/L (3.3-5.1); Sodium 140 mmol/L (135-145); Total Protein 7.8 g/dL (6.5-8.0)
[2024-10-16 16:00] VITALS: BP 133/74; PULSE 75; RESP 16; TEMP 36.9; O2SAT 100
--- OUTSIDE RECORDS SUMMARY | 2024-10-16 16:17 | XMS_ITS | Patient Health Record ---
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 Name Role Phone Rosales Irvin Unavailable [phone] [employer] - DO NOT USE, update [facility] Unav[facility] Unavailable Jia Alvares Unavailable [phone] Reason For Referral No Information Encounters Encounter Location Date Provider Diagnosis [facility] [address], [place] [phone] 10/24/2023 Jia Alvares Plan Of Treatment No Information Insurance Providers Payer Name Payer Address Payer Phone Subscriber Number Group Number Insured Name Patient Relationship to Insured Coverage Start Date Coverage End Date Insurance - None Need to apply for insurance [address] [place] [address] [id number] Janes Jorgensen Self - patient is the insured
[2024-10-16] MEDS: bisacodyL 5 MG TABLET.DR 10 MG PO (17:23)
[2024-10-16] MEDS: Milk of Magnesia 30 ML ORAL.SUSP PO (17:23)
--- NOTE | 2024-10-16 17:23 | PC.NURSE ---
pt medicated per order, digital rectal exam performed by provider
[2024-10-16 17:30] VITALS: BP 128/88; PULSE 92; RESP 16; TEMP 36.8; O2SAT 98
--- NOTE | 2024-10-16 17:30 | PC.NURSE ---
pt had multiple large bms prior to discharge.
== END 2024-10-16 17:31 | disposition home or self-care (01) ==
PROVIDERS: Physician Assistant Medical; Emergency Provider Internal Medicine
DX: K59.00 Constipation, unspecified (principal); F17.210 Nicotine dependence, cigarettes, uncomplicated; F32.9 Major depressive disorder, single episode, unspecified; Z79.899 Other long term (current) drug therapy
CPT/HCPCS: 36415; 74018; 80053; 83735; 85025; 99283; 99284

== ENCOUNTER → 2024-10-16 12:20 | Outpatient (BNV) | payer OTHER, SELFPAY | PROVIDERS: Visit Provider Radiology Diagnostic Radiology | DX: K59.00 Constipation, unspecified (principal) | CPT/HCPCS: 74018 ==